=== PATIENT | male | born 1945 | race Caucasian/White ===

== ENCOUNTER 2016-11-29 14:00 | Inpatient (IN) | payer MEDICARE, OTHER ==
[~2016-11-29] VITALS: Ht 172.7 cm; Wt 53.3 kg
--- NOTE | ~2016-11-29 | HP ---
PATIENT'S NAME: SAMPSON LEGER [facility] AGE: 71 Y [address] ROOM: [place] [address] [place] [facility] [place]: 11/29/2016 History & Physical DISCHARGE DATE: FAMILY PHYSICIAN: PHYSICIAN, UNKNOWN ATTENDING PHYSICIAN: REN CHAHAL DATE OF SERVICE: 11/29/2016 PRIMARY CARE PROVIDER: April Gil M.D. and/or [facility]. CHIEF COMPLAINT: Hematochezia and hematuria. HISTORY OF PRESENT ILLNESS: The patient is a pleasant 71-year-old male, who presents with 2-day history of bright red blood per rectum. He has been having some painful bowel movements and they presented to the [facility] today for further evaluation. Blood in his stool was confirmed as well as large amount of hematuria. The patient was transferred to this facility for higher level of treatment. The patient denies any changes in medications or activity level. He did have history of hematuria with previous UTI which has been several years ago. The patient does have some abdominal cramping especially when the bowels move. He does have some fecal incontinence. Denies any urinary incontinence. The patient denies any lightheadedness, dizziness, chest pain, or increased shortness of breath. He does have history of COPD and emphysema and is oxygen dependent at 2 L. The patient denies any history of colonoscopy or EGD. He states that he did have a CAT scan several years ago, they were uncertain as to why he had had all the findings of such. The patient denies any acute gastrointestinal or respiratory illnesses. He has not had any fevers, chills, or sweats. He does have some weight loss. is unable to ascertain how much . The patient does have strong tobacco use, recently quit 2-1/2 years ago, and smoked cigarettes prior to that. He does admit to drinking 3 beers daily. He states that he does not imbibe that he had not noticed any withdrawal symptoms, shaking, tremors, or seizures. PAST MEDICAL HISTORY: Illnesses include: 1. BPH. 2. History of tachycardia. 3. Essential hypertension. 4. Hyponatremia. 5. Chronic depression. PATIENT'S NAME: SAMPSON LEGER [facility] AGE: 71 Y [address] ROOM: [address] [address] [place] [facility] [place]: 11/29/2016 History & Physical DISCHARGE DATE: FAMILY PHYSICIAN: PHYSICIAN, UNKNOWN ATTENDING PHYSICIAN: REN CHAHAL 6. COPD, oxygen dependent. 7. Seborrheic dermatitis. ALLERGIES: PENICILLIN. CURRENT MEDICATIONS: 1. Advair 250/50, one puff twice daily. 2. Flomax 0.4 mg p.o. daily. 3. DuoNeb p.r.n. 4. Ketoconazole cream topically twice daily. 5. Guaifenesin 600 mg q.12 hours. 6. Multivitamin 1 tablet daily. 7. MiraLax 17 grams every other day. 8. Prozac 20 mg daily. 9. Spiriva 1 vial inhaled daily. 10. Metoprolol 25 mg daily. 11. Triamcinolone cream topically twice daily. 12. Ascorbic acid 500 mg daily. SOCIAL HISTORY: The patient is . He is retired. His functional capacity is quite limited. He does walk with a 4-pronged cane around the house, does not travel outside the house. His alcohol and tobacco use are as noted above. FAMILY HISTORY: Significant for cardiac disease in his father and alcoholism. The patient does have 2 adult children, unknown if any health issues. REVIEW OF SYSTEMS: A 13-point review of systems was obtained. Pertinent positives noted above. PHYSICAL EXAMINATION: VITAL SIGNS: The patient's weight is 53.3 kilos, he is 5 feet and 8 inches, blood pressure is 115/71, pulse 83, respirations 22, and he is 96% on 2 L. GENERAL: The patient is alert, oriented, in no acute distress. HEENT: Head: Normocephalic and atraumatic. Eyes: PERRLA and EOMI. Nose, throat posterior pharynx is nonerythematous. No tonsillar hypertrophy or exudate. NECK: Supple. No adenopathy or thyromegaly. LUNGS: Coarse with inspiratory and expiratory wheezes throughout. Bases are diminished. HEART: Very distant, but auscultated to be regular rate and rhythm without murmur. ABDOMEN: Slightly distended. Positive bowel sounds auscultated. No masses or organomegaly palpated. PATIENT'S NAME: SAMPSON LEGER [facility] AGE: 71 Y [address] ROOM: [id number] [place], [place] [address] [place] [facility] [place]: 11/29/2016 History & Physical DISCHARGE DATE: FAMILY PHYSICIAN: PHYSICIAN, UNKNOWN ATTENDING PHYSICIAN: REN CHAHAL GENITOURINARY: Within normal limits. I do note vera blood present at the tip of the penis. RECTAL: Deferred at this time, but I do note the exterior to be covered with bright red blood as well. SKIN: He has a large, looks like a lentigo lesion in the middle of his back. He does have scattered ecchymoses throughout the skin. He does have a rash consistent with seborrheic dermatitis across the and facial margins. NEUROLOGIC: No focal or sensory deficits noted. Moves all extremities against gravity. PSYCHIATRIC: The patient is alert, oriented, and in no acute distress. Does not appear to have diminished affect. MUSCULOSKELETAL: Appropriate range of motion is noted in bilateral upper and lower extremities without significant crepitus or joint effusion. LABORATORY DATA: Laboratory studies from referring hospital. Urine drug screen was negative. Alcohol level was negative. Occult stool was positive. Urinalysis showed red urine with 2+ bilirubin, trace of glucose, 2+ ketones, specific gravity 1.01, blood was 3+, pH was 8.5, protein was 3+, nitrite positive, 3+ leukocyte esterase, packed red blood cells noted on micro. Sodium 137, potassium 4.2, chloride 98, bicarb 32, glucose 138, BUN 13, creatinine 0.73, serum osmolality 278, albumin 3.4, total bilirubin 0.5, alkaline phosphatase 83, AST 21, and ALT 26. White blood cell count 9.6, hemoglobin 14.0, hematocrit 42.1, and platelets 260. IMPRESSION AND PLAN: 1. Acute lower gastrointestinal bleed. We will check stat labs, and start a PPI and IV fluids. We will type and cross and hold for right now, and GI has been consulted. We will monitor H and H q.6 hours. The patient is agreeable to blood transfusion if necessary. Risks and benefits have been discussed. 2. Hematuria. We will check a urinalysis and culture and follow the CAT scan to further evaluate both the hematochezia and hematuria. 3. Chronic obstructive pulmonary disease. We will continue nebs and respiratory for severity scoring. We will get a chest x-ray and make adjustments, pending those results. 4. Hypotension. Will hold his metoprolol at this time with his mild hypotension. We will monitor him on telemetry. 5. Chronic daily alcohol use. Monitor for any withdrawal symptoms. 6. Deep venous thrombosis prophylaxis with SCDs only. 7. Code status. DNR/DNI. We do appreciate participating in this patient's care. Thank you very much for the ability to serve him while hospitalized at [facility]. PATIENT'S NAME: SAMPSON LEGER [facility] AGE: 71 Y [address] ROOM: [place] [address] [place] [facility] [place]: 11/29/2016 History & Physical DISCHARGE DATE: FAMILY PHYSICIAN: PHYSICIAN, UNKNOWN ATTENDING PHYSICIAN: REN CHAHAL TIMOTHY BOSTON FOR REN CHAHAL MD RACHELL/modl /[id number] D: [id number] T: [id number] HISTORY & PHYSICAL
--- NOTE | ~2016-11-29 | CON ---
PATIENT'S NAME: ESTUARDO LEGER [facility] AGE: 71 Y [address] ROOM: [place] [address] [place] [facility] [place]: 11/29/2016 Consultation DISCHARGE DATE: 12/08/2016 FAMILY PHYSICIAN: Physician, Unknown ATTENDING PHYSICIAN: Eugene Mcclellan REFERRING PHYSICIAN: Noah Pires MD CHIEF COMPLAINT: Estuardo Leger is a 71-year-old man with squamous cell carcinoma of the lung. The history of present illness was obtained from Mr. Leger, who is a fair historian; his nurse practitioner, Jhon Bliss; and from review of the current [facility] chart. HISTORY OF PRESENT ILLNESS: Mr. Leger was in his normal state of health until late November 2016. He lived in [place], [place] with Mrs. Leger. He is retired. He had no formal or informal exercise program. He used a cane for balance because he had experienced pratfalls in the past. He did not participate in a Physical Therapy or Occupational Therapy Program. 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 He did very little of the household tasks or yard work. He led a very sedentary existence. He had worn continuous oxygen for 5 to 10 years due to chronic obstructive lung disease. He sometimes had a productive cough. The patient developed gross hematuria and hematochezia at roughly the same time on 11/27/2016. The patient presented to the [facility] for evaluation, and hematuria and hematochezia were confirmed. Dr. April Gil arranged for his transfer to the [facility] (the [facility] did not have a bed). The patient was admitted and evaluated at [facility]. The urinalysis did reveal packed red blood cells, 20 to 50 wbc's, and urine protein of 100 mg/dL. The urine culture was negative. The CBC revealed that the white count was 9400, with 70% neutrophils, 8% lymphocytes, and 11% monocytes. The hemoglobin was 13 g/dL, the MCV was 101, and the platelets were 252,000. The CMS was just remarkable for an albumin of 3.2 g/dL. The TSH was normal at 0.734 international units/mL. The proBNP was elevated at 1432 pg/mL. The CK was elevated at 16.6 mg/mL and the troponin was elevated at 0.065 mg/mL. The cholesterol was 106, the triglycerides were 72 mg/dL, and the HDL cholesterol was 58 mg/dL. The sputum culture was unremarkable. Stools for Hemoccult testing were positive. Mr. Leger was seen in Urologic consultation by Dr. Noah Pires. Dr. Pires performed a cystoscopy, bladder biopsy, and fulguration on 12/01/2016. The patient had an elevated bladder neck, but no lateral lobe PATIENT'S NAME: ESTUARDO LEGER [facility] AGE: 71 Y [address] ROOM: [address] [address] [place] [facility] [place]: 11/29/2016 Consultation DISCHARGE DATE: 12/08/2016 FAMILY PHYSICIAN: Physician, Unknown ATTENDING PHYSICIAN: Eugene Mcclellan A prostatic enlargement. The patient had significant global inflammation of the prostate. No specific masses or lesions were noted. Two random biopsies were taken from the areas of inflammation, which were then fulgurated for hemostasis. The pathologists noted the presence of transitional epithelium, with mucosal ulceration and moderate to marked acute on chronic inflammation. There were no granulomas and no tumor was observed. The patient was seen by Dr. Aimee Terrazas, who recommended a colonoscopy. Dr. Terrazas also recommended a CAT scan. The colonoscopy revealed internal hemorrhoids. Polyps were noticed in the transverse colon, splenic flexure, and rectum. The colonic polyps were adenomas, and the rectal biopsy was a hyperplastic polyp. The polyps were excised. A CAT scan upon admission revealed a questionable 1.1-cm nodule overlying the anterior right eleventh rib. A CAT scan was recommended. A CAT scan of the abdomen and pelvis had revealed non-specific bladder wall thickening with mild left hydronephrosis. There was emphysema and moderate aortoiliac atherosclerosis. On 12/03/2016, the CT scan of the thorax revealed emphysematous changes in the lung parenchyma with bilateral apical pleural thickening and pleural parenchymal scarring. There were parenchymal calcifications in the upper lobe of the left lung and upper lobe of the right lung. There was a 3-cm cavitary lesion in the superior segment of the lower lobe of the left lung. The lesion extended to the posterior pleura. The margin was spiculated and irregular. There was scarring at the lung bases. There was an area of dense lung consolidation with adjacent patchy parenchymal opacity at the posterior aspect of the lower lobe of the right lung consistent with dense infiltrate and atelectasis. There were vascular calcifications at the thoracic aorta, arch vessels, and coronary arteries. A CT-guided biopsy of the mass in the lower lobe of the left lung was performed, and revealed squamous cell carcinoma in the core needle biopsy specimen. A grade was not provided. Mr. Leger is seen in consultation. The patient estimates he smoked two packs per day of cigarettes for 60 years, and has abstained for three years. The patient smoked Camel non- filters for many years. He supplies no convincing exposure history to asbestos, diesel fuel, uranium, chromium, or nickel. His home has never been checked for radon. PAST MEDICAL HISTORY: Active medical problems, chronic and diagnosed: 1. Benign prostatic hypertrophy. 2. Essential arterial hypertension. 3. Depression. 4. Tobacco use. The patient smoked two packs per day for 60 years, but has PATIENT'S NAME: ESTUARDO LEGER [facility] AGE: 71 Y [address] ROOM: [address] [place] [address] [place]: [facility] [place] DATE: 11/29/2016 Consultation DISCHARGE DATE: 12/08/2016 FAMILY PHYSICIAN: Physician, Unknown ATTENDING PHYSICIAN: Eugene Mcclellan abstained since 2013. 5. Seborrheic dermatitis. 6. Atherosclerotic peripheral vascular disease with aortoiliac calcifications. 7. The patient's left ankle brachial index was 0.89 compatible with moderate peripheral vascular disease. 8. Complex 2-cm left kidney cyst. 9. Bone island in the right iliac bone. 10. Atrophic right kidney. 11. Atherosclerotic heart disease with coronary calcifications. 12. Adenomatous polyposis of the colon in the transverse and splenic flexures noted in December 2016. 13. Pulmonary artery hypertension with dilated right ventricle on echocardiogram. 14. Subjective decreased auditory acuity. PAST SURGICAL HISTORY: Acute medical illnesses (resolved), past surgeries, and illnesses are 1. In 1952, tonsillectomy and adenoidectomy. 2. In 2001, left wrist. 3. Appendectomy. The patient cannot recall when this was performed and won't guess. MEDICATIONS: Upon admission, 1. Continuous oxygen. 2. Ascorbic acid 500 mg p.o. q.24 h. 3. Fluoxetine 20 mg p.o. q.24 h. 4. Fluticasone/salmeterol (Advair 250/50 Diskus) one puff inhaled b.i.d. 5. Guaifenesin 600 mg p.o. every twelve hours. 6. Ipratropium/albuterol 0.5/3 one vial every 6 hours. 7. Ketoconazole cream, apply to the face and scalp twice a day. 8. Metoprolol 50 mg p.o. q.24 h. 9. Multivitamins daily. 10. Polyethylene glycol 17 g every 48 hours. 11. Prednisone 5 mg daily. ALLERGIES: ADVERSE REACTIONS TO MEDICATIONS, TRANSFUSIONS, AND ALLERGIES 1. PENICILLIN LEAD TO URTICARIA. 2. THE PATIENT DENIES ANY BLOOD TRANSFUSIONS. 3. TOBACCO, QUIT SINCE 2013, TWO PACK PER DAY FOR SIXTY YEARS CAMEL NON-FILTERS. 4. ALCOHOL THREE TO FOUR BEERS A DAY, AND THREE SHOTS A DAY FOR DECADES. THE PATIENT HAS BEEN ARRESTED MANY TIMES FOR DUI, BUT DENIES HOSPITALIZATIONS OR MEDICAL COMPLICATIONS. 5. CAFFEINE, 6 TO 7 CUPS OF COFFEE PER DAY. PATIENT'S NAME: ESTUARDO LEGER [facility] AGE: 71 Y [address] ROOM: [place] [address] [place] [facility] [place]: 11/29/2016 Consultation DISCHARGE DATE: 12/08/2016 FAMILY PHYSICIAN: Physician, Unknown ATTENDING PHYSICIAN: Eugene Mcclellan 6. DRUGS OF ABUSE. THE PATIENT HAS ABSTAINED FROM METHAMPHETAMINE SINCE ROUGHLY 2006, BUT HAD INGESTED IT FOR 25 YEARS PRIOR TO THAT TIME. HE IS ALSO SAMPLED LSD WHEN HE WAS YOUNGER AND SMOKED MARIJUANA. IMMUNIZATIONS: Negative flu. The patient does not know if he has had Pneumovax. Positive tetanus in the last 10 years. Negative varicella zoster virus. FAMILY HISTORY: Negative for cancer. SOCIAL HISTORY: The patient was born and raised in [place], [place]. He left school after the 9th grade and did not get a GED. He has lived in [place] with his for 13 years. 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 The patient has been to two other spouses, and was on two occasions. He had one son who at 19. He has a daughter in [place] and [place], [place], and a stepdaughter in [place] and stepsons in [place]. He is not a gnosticism goer. REVIEW OF SYMPTOMS: Intermittent tingling in his hands. The patient has had memory problems. He has developed contractures of his right third and fifth fingers and left fifth and second fingers. He has subjective heat intolerance. PHYSICAL EXAMINATION: VITAL SIGNS: Pulse was 76 and regular, blood pressure was 135/75, respiratory rate was 16, and temperature was 97.8. Height is 68 inches, weight is 53.5 kg (118 pounds), and BMI is 17.9 kg/m2. GENERAL: Well-developed, underweight, disheveled, and unkempt 71-year-old male, who appears frail. HEENT: Edentulous. LYMPH NODES: None palpable. NECK: Without JVD or carotid bruits. NOSE: Acne rosacea. CHEST: Markedly decreased breath sounds bilaterally. CARDIOVASCULAR: Decreased S1 and S2. No murmurs, bruits, or adventitious sounds were audible. SKIN: Garza angiomas and ecchymoses on the ventral forearms. ABDOMEN: Healed appendectomy scar. No masses, tenderness, or organomegaly. GENITAL AND RECTAL: The patient is circumcised. The Horne catheter was in place. EXTREMITIES: Digital clubbing and tobacco stain on the fingernails. Compression devices are present on his legs. Pulses are 2+ in the dorsalis PATIENT'S NAME: ESTUARDO LEGER [facility] AGE: 71 Y [address] ROOM: [address] [address] [place] [facility] [place] DATE: 11/29/2016 Consultation DISCHARGE DATE: 12/08/2016 FAMILY PHYSICIAN: Physician, Unknown ATTENDING PHYSICIAN: Eugene Mcclellan pedis and the posterior tibial. The patient's toenails have not been clipped for a great deal of time. NEUROLOGICAL: The patient responds to questions, and is alert and moves all four extremities. IMPRESSION: 1. 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 The tumor is 3 cm and extends to the visceral pleura on CAT scan. No lymphadenopathy or signs of distant metastases are noted. 2. Risk factors include his tobacco use and age of 71. 3. The treatment goals, prognosis, and treatment recommendations depend on the final clinical stage. It appears the patient may achieve a cure. 4. The patient is almost certainly not a physiologic candidate for surgical resection. He may well be a candidate for external beam radiation or stereotactic radiation surgery with curative intent. PLAN: DIAGNOSTIC: 1.The patient will see Dr. Kmeal Hurd at the [facility], at [facility] in [place], [place] at 09:30 a.m. on 12/13/2016. 2.Pulmonary function tests and a PET-CT scan would be reasonable and standard. 3.Bronchoscopy is generally recommended in this situation by the [employer] [facility] experts but could be forgone. TREATMENT: 1. Recommendations would depend on the final clinicopathologic stage. 2. Continue medications recommended by the hospitalists. PATIENT EDUCATION: 1.Provided a customized hand-out on his situation and the [employer] care material online for aqx-ibehk-ftag carcinoma, stage I-III. 2.Discussed the natural history of the cancer without treatment. 3.Discussed the risk factors. 4.Discussed the rationale for the staging workup. 5.Expressed our hope he could be treated with curative intent since the tumor appears to be low stage and is a squamous cell carcinoma. 6.Arranged for him to visit our colleagues in [place], [place], since he is from [place], [place], and usually seeks specialty care in [place]. PATIENT'S NAME: ESTUARDO LEGER [facility] AGE: 71 Y [address] ROOM: [address] [address] [place] [facility] [place] DATE: 11/29/2016 Consultation DISCHARGE DATE: 12/08/2016 FAMILY PHYSICIAN: Physician, Unknown ATTENDING PHYSICIAN: Eugene Mcclellan MD FER OLIVARES/jono /[id number] CC: MD April Alexander, MD Jhon Orlando APRN d: 12/09/16 0120 t: 12/12/16 1447, CONSULTATION REPORT
--- NOTE | ~2016-11-29 | CON ---
PATIENT'S NAME: SAMPSON LEGER [facility] AGE: 71 Y [address] ROOM: [place] [address] [place] [facility] [place] DATE: 11/29/2016 Consultation DISCHARGE DATE: FAMILY PHYSICIAN: PHYSICIAN, UNKNOWN ATTENDING PHYSICIAN: REN CHAHAL DATE OF CONSULTATION: 11/30/2016 REFERRING PHYSICIAN: Noah Pires MD HISTORY: The patient is a 71-year-old male, initially admitted secondary to dysuria and pain with defecation. The patient reported difficulty with urination complaining of dysuria and also reports what sounds like hematuria for the past 4 or 5 days. He also reports blood with bowel movements. The patient has had abdominal and pelvic CT scan, which showed bladder wall thickening, possible blood within the bladder, and mild left hydronephrosis. Nursing staff reported gross hematuria with clots when Horne catheter was placed. Again, the patient reports gross hematuria for the past 4-5 days. The patient has also had a colonoscopy which was essentially negative other than polyps. The patient was a long-time smoker, but stopped approximately 2-1/2 years ago. I discussed cystoscopy with possible bladder biopsy or TURBT with the patient along with risks and benefits. PAST MEDICAL HISTORY: Significant for BPH, hypertension, chronic depression, COPD, dermatitis, emphysema, and chest pain. PAST OPERATIONS: Tonsillectomy and appendectomy. MEDICATIONS: At admission are, 1. Flomax. 2. Advair Diskus. 3. DuoNeb nebulizer. 4. Ketoconazole cream. 5. Prozac. 6. Spiriva. 7. Toprol. 8. Vitamin C. ALLERGIES: PENICILLIN. SOCIAL HISTORY: PATIENT'S NAME: SAMPSON LEGER [facility] AGE: 71 Y [address] ROOM: [address] [address] [place] [facility] [place] DATE: 11/29/2016 Consultation DISCHARGE DATE: FAMILY PHYSICIAN: PHYSICIAN, UNKNOWN ATTENDING PHYSICIAN: REN CHAHAL The patient is a nonsmoker, stopping 2-1/2 years ago, prior to that he smoked 2 packs of cigarettes a day for 50 years. The patient does consume alcohol daily. REVIEW OF SYSTEMS: Significant for chronic cough. PHYSICAL EXAMINATION: GENERAL: Elderly male, appears somewhat disheveled, long facial hair and hair. EARS, NOSE, MOUTH, AND THROAT: The patient has some difficulty hearing. LUNGS: There are some wheezes noted bilaterally. CARDIAC: Regular rhythm and rate. ABDOMEN: Benign. NEURO: Grossly intact. SKIN: Within normal limits. MUSCULOSKELETAL: Full range of motion. Normal muscle tone. IMPRESSION: Gross hematuria. PLAN: We will schedule the patient for cystoscopy with possible bladder biopsy or TURBT for tomorrow afternoon. MD ATUL TATE/jono /[id number] d: 11/30/162111 t: 12/11/161915, CONSULTATION REPORT
--- NOTE | ~2016-11-29 | CON ---
PATIENT'S NAME: [facility] AGE: 71 Y [address] ROOM: [address] [address] LOCATION: [facility] [place] ADMIT DATE: 11/29/2016 Consultation DISCHARGE DATE: FAMILY PHYSICIAN: PHYSICIAN, UNKNOWN ATTENDING PHYSICIAN: REN MCCLELLAN DATE OF CONSULTATION: 11/29/2016 REFERRING PHYSICIAN: Noah Pires MD REFERRING PHYSICIANS: Dr. Mcclellan and TIMOTHY Dupont. CONSULTING PHYSICIAN: Aimee Terrazas M.D. REASON FOR CONSULTATION: Lower GI bleeding. HISTORY OF PRESENT ILLNESS: The patient is a pleasant, 71-year-old white male, who has been referred from [facility] for possible evaluation of lower GI bleeding. According to the patient, he has been having some rectal bleeding for the last 3 days. He is also complaining of severe dysuria. He has also had urgency of micturition. He was referred here for further management. He denies any abdominal pain. He has never had any colonoscopy done. He has never had any upper endoscopy done also. He does have a history of alcoholism. PAST MEDICAL HISTORY: Significant for benign prostatic hypertrophy and essential hypertension. He has had hyponatremia in the past. Depressive disorder and chronic obstructive pulmonary disease. He has pulmonary emphysema and seborrheic dermatitis. He also smokes, he stated that he quit 2 years ago. CURRENT MEDICATIONS: Include, 1. Advair Diskus. 2. Flomax. 3. Ipratropium. 4. Albuterol. 5. Mucinex. 6. Multivitamin. 7. MiraLAX p.r.n. for constipation. 8. Prozac. 9. Spiriva HandiHaler. 10. Toprol-XL. PATIENT'S NAME: [facility] AGE: 71 Y [address] ROOM: [address] [address] LOCATION: [facility] [place] ADMIT DATE: 11/29/2016 Consultation DISCHARGE DATE: FAMILY PHYSICIAN: PHYSICIAN, UNKNOWN ATTENDING PHYSICIAN: REN MCCLELLAN 11. Triamcinolone ointment. 12. Vitamin C. ALLERGIES: TO PENICILLIN. PAST SURGICAL HISTORY: Significant for tonsillectomy and adenoidectomy as a child and appendectomy done. FAMILY HISTORY: He has 2 brothers. Father had coronary artery disease. He does not remember any other illnesses in the family. SOCIAL HISTORY: Lives with his . Retired. He stated he has not smoked in 2 years. He is oxygen dependent with COPD. Does drink alcohol in moderate amounts on a daily basis. No fzym-yup-hirlsok drug or alcohol abuse. REVIEW OF SYSTEMS: A detailed 10-point review of systems was done. It was found to be negative other than what is mentioned in the history of present illness and past medical history. LABORATORY DATA: When he arrived in the emergency room labs showed sodium 137, potassium 4.2, chloride is 98, bicarb is 32, BUN is 13, creatinine 0.73, glucose 138, AST of 21, ALT 26, alkaline phosphatase 83. His WBC is 9.6, hemoglobin 14.0, hematocrit 42.1, and platelet count is 260. Urine showed packed rbc's, 3+ leukocyte esterase, positive for nitrites. PHYSICAL EXAMINATION: GENERAL: Today, he is alert and awake. He does not appear to be in any acute distress. He is fairly well oriented and does not appear to be confused. VITAL SIGNS: Show blood pressure is 115/71, heart rate is 80, respiratory rate is 22, and O2 saturation is 96%. GENERAL: Reveals no pallor, no icterus. Oral cavity is normal. Nasal passages are clear. NECK: No masses are felt. No thyromegaly is felt. He has a large morales. CHEST: Emphysematous chest. No obvious wheezing or rhonchi. ABDOMEN: Soft, nontender. I do not feel any masses. RECTAL: Examination was done, which is slightly painful. I do see large amounts of fresh blood in it. No definite hemorrhoids are felt. No masses are felt. MUSCULOSKELETAL: No obvious injuries or deformities are seen. PATIENT'S NAME: SAMPSON LEGER [facility] AGE: 71 Y [address] ROOM: [place] [address] LOCATION: [facility] [place] ADMIT DATE: 11/29/2016 Consultation DISCHARGE DATE: FAMILY PHYSICIAN: PHYSICIAN, UNKNOWN ATTENDING PHYSICIAN: REN MCCLELLAN NEUROLOGICAL: Grossly nonfocal. LABORATORY DATA: As mentioned above. IMPRESSION: The patient with a history of possible lower gastrointestinal bleeding. The etiology is not clear. He has never had a screening colonoscopy done. In view of this, we will be scheduling him for a colonoscopy. The procedure of colonoscopy was explained in detail to the patient. All risks, including but not limited to, bleeding, perforation, possible need for surgery were explained. Informed consent was then obtained. In addition to this, the patient also has possibly urinary tract infection. This has been managed as per the hospitalist. The patient is to also get a CT scan of the abdomen done. I think this is appropriate. We will consider further management if findings require us doing so. Thank you once again for the courtesy of this consultation. We will be happy to follow the patient along with you. MD MASOOD HERNANDEZ/modl /[id number] d: 11/30/16 0052 t: 11/30/16 1655, CONSULTATION REPORT
--- NOTE | ~2016-11-29 | DS ---
PATIENT'S NAME: SAMPSON LEGER [facility] AGE: 71 Y [address] ROOM: [address] [address] [place] [facility] [place]: 11/29/2016 Discharge Summary DISCHARGE DATE: 12/08/2016 FAMILY PHYSICIAN: Physician, Unknown ATTENDING PHYSICIAN: Eugene Mcclellan ADDENDUM: Regarding the discharge instruction, Dr. Centeno made a phone call to the oncologist at [facility] for them to schedule the patient for an outpatient PT at [facility] and he did also talk with an oncologist there by the name of Dr. Kemal Hurd who will continue onwards with the care of the patient. MD RALEIGH GUTIERREZ/nicolel /[id number] d: 12/09/16 0027 t: 12/18/16 1013, DISCHARGE SUMMARY
--- NOTE | ~2016-11-29 | CON ---
PATIENT'S NAME: SAMPSON LEGER [facility] AGE: 71 Y [address] ROOM: [id number] [place], [place] [address] [place] [facility] [place]: 11/29/2016 Consultation DISCHARGE DATE: 12/08/2016 FAMILY PHYSICIAN: Physician, Unknown ATTENDING PHYSICIAN: Eugene Mcclellan DATE OF CONSULTATION: 12/04/2016 REFERRING PHYSICIAN: Noah Pires MD REASON FOR CONSULTATION: Indication: Cavitary lesion on chest CT, was abnormal chest CT. HISTORY OF PRESENT ILLNESS: This is a 71-year-old male with history of COPD, O2 dependent; and other comorbidities, sent from [email or web address] for possible lower GI bleed. Colonoscopy was performed without identifying any specific source. Multiple polyps were removed and internal hemorrhoids were noted. A cystoscopy was performed on December 01 with no acute bleeding source identified. Hemoglobins have remained stable since admission. A chest x-ray performed on November 29 identified a nodule over the anterior third rib. A followup chest CT was performed on December 03 showing a cavitary lesion in the left lower lobe with dense consolidation of the right lower lobe, emphysema, and pleural thickening/scarring. The patient reports he was initially diagnosed several years ago with COPD and has been on 2 L continuous oxygen for a few years now. He reports a history of one hospitalization for respiratory failure. Otherwise, he has had no further exacerbations that he can recall. His home regimen for his COPD typically includes Advair twice a day and DuoNeb once a day. He was a former tobacco smoker at least one pack per day for over 40 years and quit two years ago. He currently still uses alcohol. He is not an overly active person. His main walking consists of only room to room in his house. He is always short of breath, however, this has not worsened over the last few months. He typically has an intermittent cough that is occasionally productive in the mornings. He feels the cough might be a little worse since admission, but has been unable to cough anything up. He denies any fevers, chills, nausea, vomiting, or hemoptysis. He has had no recent travel or illness. He denies any PND, orthopnea, or edema. PAST MEDICAL HISTORY: Include: 1. BPH. 2. Hypertension. 3. Depression. 4. Former tobacco use. 5. Seborrheic dermatitis. 6. Peripheral vascular disease. PATIENT'S NAME: SAMPSON LEGER [facility] AGE: 71 Y [address] ROOM: [place] [id number] [place] [facility] [place]: 11/29/2016 Consultation DISCHARGE DATE: 12/08/2016 FAMILY PHYSICIAN: Physician, Unknown ATTENDING PHYSICIAN: Eugene Mcclellan 7. CAD. 8. Cor pulmonale with pulmonary hypertension. PAST SURGICAL HISTORY: Includes: 1. Tonsillectomy. 2. Left wrist surgery. 3. Appendectomy. ALLERGIES: SEE NOV. MEDICATIONS: See NOV. FAMILY HISTORY: Negative for lung disease. SOCIAL HISTORY: The patient is a former one pack per day smoker for over 40 years and quit two years ago. He admits to current alcohol use. Denies any illicit drug use. REVIEW OF SYSTEMS: A 10-point review of systems is negative except what is noted in the HPI. PHYSICAL EXAMINATION: VITAL SIGNS: Blood pressure 129/67, pulse 102, respirations 22, temperature 97.9, and he is 94% on 2 L nasal cannula. GENERAL: This is a 71-year-old, well-developed, well-nourished male, who is alert and oriented x3 and appears in no acute distress at the time of exam. HEENT: Head; normocephalic and atraumatic. Eyes, clear. NECK: Supple. No adenopathy. No carotid bruits or JVD. RESPIRATORY: Lung sounds distant with decreased breath sounds, but overall clear. HEART: Regular rate and rhythm without murmur, gallop, or rub. No wheezes or rales. ABDOMEN: Soft, nontender, and nondistended. Bowel sounds x4. EXTREMITIES: No cyanosis, clubbing, or edema. DIAGNOSTIC DATA: ProBNP was 1432. Sodium 140, potassium 3.5, CO2 of 32, BUN 10, and creatinine 0.6. WBC 9.7, hemoglobin 11.3, hematocrit 35.8, and platelets 246,000. ASSESSMENT: 1. Abnormal chest CT with left lung cavitary lesion which is concerning for PATIENT'S NAME: SAMPSON LEGER [facility] AGE: 71 Y [address] ROOM: [address] [place] [id number] [place] [facility] [place]: 11/29/2016 Consultation DISCHARGE DATE: 12/08/2016 FAMILY PHYSICIAN: Physician, Unknown ATTENDING PHYSICIAN: Eugene Mcclellan malignancy. There is also right lung consolidation which would indicate possible pneumonia. 2. Chronic obstructive pulmonary disease with exacerbation. 3. Community-acquired pneumonia, on antibiotics. 4. Chronic respiratory failure, stable on current oxygen needs. 5. Cor pulmonale. PLAN: We will plan for a CT-guided biopsy of the left cavitary lung lesion. We will start levofloxacin orally for 7 days to cover. Recommend continuing with prednisone taper, inhaled cortical steroid, and bronchodilator for COPD exacerbation. Discussed the need for repeat CT of the chest in 6 weeks. However, the patient is refusing this at this time. Thank you for the consult and opportunity to participate in this patient's care. ANDRIA DOLAN APRN FOR MD GRETCHEN BROCK/jono /[id number] d: 12/27/16 1335 t: 01/02/17 2137, CONSULTATION REPORT
--- NOTE | ~2016-11-29 | ECHO ---
Transthoracic Echocardiography Report (TTE) Demographics Patient Name SAMPSON LEGER Date of Study 12/03/2016 Patient Number [id number] Visit Number [id number] Date of 1945 Room Number G3202 Gender Male Number Age 71 year(s) Referring Michelle Faulkner Active Directory Systems Administrator Corrieamita Gore [facility], Physician Willie BURNETTE RVT Vy Montiel MD Physician Interpreting [facility] Physician Lucie Tapia MD Supervising Ordering Replaced By [facility] BURNETTE/MLP Physician Lucie Tapia MD Nurse Stress Bagging Machine Operator Conclusions Contractility Score Summary Normal Left Ventricular contractility was noted. Summary Technically very difficult exam. The estimated left ventricular ejection fraction is 50%. Diastolic function indeterminate due to patient's arrhythmia. Poor pericardial and apical windows. Flattened septum in end systole suggests RV pressure overload. Severely dilated right ventricle. Reduced right ventricular systolic performance. R atrium not well visualised. appears dilated Procedure Type of Study TTE procedure:2D Echocardiogram. Procedure Date Date: 12/03/2016 Start: 02:34 PM Study Location: Inpatient Portable Technical Quality: Poor visualization due to lung interference. Indications:Tachycardia. Appropriate Use Criteria: 9 Patient Status: Routine Rhythm: Sinus tachycardia HR: 139 bpm M-Mode/2D Measurements LV Diastolic Dimension: 3.75 cm LV Septum Systolic: 2.6 cm LV Septum Diastolic: 0.92 cm AO Root Dimension: 2.5 cm LV PW Diastolic: 0.96 cm AV Cusp Separation: 1.6 cm LA Dimension: 3.2 cm RV Diastolic Dimension: 3.47 cm LVOT: 2 cm RV Base: 3.19 cm RV Mid: 3.42 cm RV Length: 4.7 cm Doppler Measurements PV Peak Velocity: 1.25 m/s PV Peak Gradient: 6.25 mmHg Findings Left Ventricle The estimated left ventricular ejection fraction is 50%. Diastolic function indeterminate due to patient's arrhythmia. Flattened septum in end systole suggests RV pressure overload. Right Ventricle Severely dilated right ventricle. Reduced right ventricular systolic performance. Left Atrium not well visualised. Right Atrium not well visualised. appears dilated Mitral Valve The mitral valve is not well imaged. Aortic Valve The aortic valve was not well imaged. It appears to be tri-leaflet and grossly normal. Tricuspid Valve The tricuspid valve is not well visualized. Pulmonic Valve The pulmonic valve is not well visualized. Pericardial Effusion No evidence of pericardial effusion. Miscellaneous Poor pericardial and apical windows. Pleural Effusion No evidence of pleural effusion. Contractility Score LV regional wall motion:(0-Non visualized 1-Normal 2-Hypokinesis 3-Akinesis 4-Dyskinesis 5-Aneurysm) Signature dtt: Damián Martinez dtd: 12/03/16 5135 Physician Self Edit
--- NOTE | ~2016-11-29 | CON ---
PATIENT'S NAME: SAMPSON LEGER [facility] AGE: 71 Y [address] ROOM: [place] [address] LOCATION: [facility] [place] ADMIT DATE: 11/29/2016 Consultation DISCHARGE DATE: FAMILY PHYSICIAN: PHYSICIAN, UNKNOWN ATTENDING PHYSICIAN: REN CHAHAL REFERRING PHYSICIAN: Noah Pires MD REASON FOR CARDIOLOGY CONSULT: Tachycardia. HISTORY OF PRESENT ILLNESS: This is a 71-year-old male admitted under the care of the Hospitalist Service for hematochezia and hematuria. He presented initially to an outside hospital with complaints of bloody stool and during his workup in the hospital, he was also noted to have hematuria. This consult requested due to the patient having a tachycardia on his telemetry while working with Physical Therapy. He denies chest pain, palpitations, presyncope, or syncope. He also denies shortness of breath or dyspnea on exertion. He does have a previous history of hypertension and tachycardia. No other noted cardiac history. There is family history of heart disease in his father. At the time of this consult, he appears comfortable. He denies diaphoresis, nausea, or vomiting at this time. PAST MEDICAL HISTORY: 1. Hypertension. 2. BPH. 3. COPD with need for continuous oxygen. 4. Depression. PAST SURGICAL HISTORY: Appendectomy. FAMILY HISTORY: As listed in the HPI. SOCIAL HISTORY: The patient is a former cigarette smoker. He smoked 2 packs of cigarettes per day for a total of 40 years. He also admits to alcohol use seven days a week, and on those days, he will have four alcoholic drinks. He denies illicit drug use. CURRENT MEDICATIONS: 1. Albuterol sulfate 2.5 mg inhaled every 6 hours. 2. Dulera 200/5 mcg two puffs inhaled twice daily. 3. Spiriva 1 puff inhaled daily. 4. Deltasone 40 mg p.o. daily. PATIENT'S NAME: SAMPSON LEGER [facility] AGE: 71 Y [address] ROOM: [place] [address] LOCATION: [facility] [place] ADMIT DATE: 11/29/2016 Consultation DISCHARGE DATE: FAMILY PHYSICIAN: PHYSICIAN, UNKNOWN ATTENDING PHYSICIAN: REN CHAHAL 5. Flomax 0.4 mg p.o. daily. 6. Mucinex 600 mg p.o. twice daily. 7. Levaquin 750 mg p.o. daily. 8. Protonix 40 mg p.o. daily. 9. Prozac 20 mg p.o. daily. 10. Multivitamin 1 tablet p.o. daily. 11. Vitamin C 500 mg p.o. daily. 12. Nizoral cream topically twice daily to face. 13. Triacet cream topically twice daily. MEDICATION ALLERGIES: 1. Penicillin. 2. Bee venom causing anaphylaxis. REVIEW OF SYSTEMS: Pertinent positive review of systems as listed in the HPI. All other review of systems evaluated and negative. PHYSICAL EXAMINATION: VITAL SIGNS: Temperature 98.4, pulse 85, respirations 16, blood pressure 124/78. O2 saturation 93% on 2 L nasal cannula. The patient weighs 53.3 kg. SKIN: [place], warm, and dry. The patient appears cachectic. EYES: Sclerae clear. No cyanosis. No xanthelasmas. ENT: Oral mucosa is pink and moist. No jugular venous distention noted. Does have mild carotid bruits noted. CHEST: Lung sounds are clear to auscultation. HEART: Distant heart tones, but regular rate and rhythm. Normal S1, S2. No murmurs, rubs, or gallops. ABDOMEN: Soft and nontender. He has decreased bowel sounds noted. MUSCULOSKELETAL: Gait is normal. EXTREMITIES: Peripheral pulses palpable. His pedal pulses are diminished and he does have positive femoral bruits. No clubbing or cyanosis noted. PSYCH: Alert and oriented. Mood and affect are appropriate. IMPRESSION AND PLAN: Per Dr. Martinez. 1. Tachyarrhythmia with questionable atrial fibrillation. His current EKG appears to show sinus tachycardia. We will check another EKG as the last one has quite a bit of artifact and his rate is currently slower than previously. We will also check an echocardiogram to fully evaluate ejection fraction as well as look for wall motion and valvular abnormalities. We will check a set of cardiac enzymes as well as a proBNP, TSH, and a lipid panel. 2. Peripheral arterial disease. We will check a set of ABIs. 3. Chronic obstructive pulmonary disease with O2 dependence. PATIENT'S NAME: SAMPSON LEGER [facility] AGE: 71 Y [address] ROOM: [place] [id number] LOCATION: [facility] [place] ADMIT DATE: 11/29/2016 Consultation DISCHARGE DATE: FAMILY PHYSICIAN: PHYSICIAN, UNKNOWN ATTENDING PHYSICIAN: REN CHAHAL 4. Acute gastrointestinal bleed lower under the care of hospitalist and GI services. 5. Hematuria has been evaluated by Urology. 6. Acute blood loss anemia. Currently stable. We will continue to monitor, evaluate, and treat as appropriate. Thank you for this consult. Thank you for allowing [facility] to interact in the care of the patient. DIONNE VALENTIN APRN FOR AKIL-MD ROSSY OTOOLE/jono /[id number] d: 12/05/16 0144 t: 12/20/16 1037, CONSULTATION REPORT
--- NOTE | ~2016-11-29 | ENPV ---
Vascular Lower Arterial Plethysmography Procedure Demographics Patient Name SAMPSON LEGER Date of Study 12/04/2016 Patient Number [id number] Gender Male Date of 1945 Age 71 Visit Number [id number] Height 68 Weight 113 Number Referring Damirmamtachristine Victoriaarmandonancy Interpreting Rhinaou Laurootis Physician A Physician A MD Vy Montiel MD Physician Ordering Michelle Faulkner Branch Specialist Physician A Title Vehicle Service Attendant Isael Brandt [facility] Jakub Dove Conclusions Summary Ankle brachial index on the right is 1.08 no significant arterial disease at rest. Ankle brachial index on the left is 0.89 mild arterial disease at rest. Procedure Type of Study: Extremities Arteries:Lower Arterial Plethysmography, Ankle/Brachial Indicies. Indications for Study:Reduced/Absent pulses. Blood Pressure:Right arm 120/ mmHg.Left arm 123/ mmHg. Patient Status:Routine. Study Location:Inpatient Portable. Technical Quality:Adequate visualization. Velocities are measured in cm/s ; Diameters are measured in cm Pressures + +----+ +---------+--------+ + + ! ! !Right ! !Left ! ! ! + +----+ +---------+--------+ + + !Location ! !Pressure !Ratio ! !Pressure !Ratio ! + +----+ +---------+--------+ + + !Ankle PT ! !114 !0.93 ! !110 !0.89 ! + +----+ +---------+--------+ + + !DP ! !133 !1.08 ! !102 !0.83 ! + +----+ +---------+--------+ + + - Brachial Pressure:Right: 120.Left:123. - SAMINA:Right: 1.08.Left: 0.89. Signature dtt: Damián Martinez dtd: 12/04/16 1438 Physician Self Edit
--- NOTE | ~2016-11-29 | ESTC ---
Cardiac Perfusion Imaging Demographics Patient Name AFRICA BRADEN Gender Male Patient Number [id number] Race Visit Number [id number] Ethnicity Corporate ID Room Number G3202 Accession Number [id number] Height 68 inches Date of 1945 Weight 113 pounds Physician MANIFOLD OPERATOR Interpreting Scotty Barboza Date of study 12/07/2016 Physician Supervising /CIROP Michelle MARTINEZ Technologist Rajesh Tapia MD Ordering Physician Stress Kayden Rodriguez radiocommunications technician RDCS, RVT Stress ECG Reading Michelle Faulkner Nurse Tyler Cee RN Physician Willie BURNETTE Procedure Procedure Type: Nuclear Stress Test:Pharmacological, Lexiscan, Cardiolite Stress Test Procedure Start time: 12/07/2016 10:45 Indications: Tachycardia. Risk Factors The patient risk factors include:hypertension and chronic lung disease. Conclusions Summary Perfusion Images: The overall quality of the study is good. Left ventricular cavity is noted to be normal on the stress and rest studies. There is no evidence of abnormal lung activity. The right ventricle is not visualized and cannot be assessed. Stress SPECT images and Rest SPECT images demonstrate homogenous tracer distribution throughout the myocardium . Gated SPECT imaging reveals normal myocardial thickening and wall motion. The left ventricular ejection fraction was calculated to be 66%. Impression ECG portion of stress test is clinically negative for ischemia by diagnostic criteria. Myocardial perfusion imaging is normal. Overall left ventricular systolic function was normal without regional wall motion abnormalities. There are no previous studies for comparison. Stress Protocols Resting ECG Normal sinus rhythm. Pre-stress physical exam: Patient assessed by dR Ochoa prior to testing. Stress Protocol:Pharmacologic Predicted HR: 151 bpm ECG Findings No ECG changes suggestive of ischemia. Arrhythmias PACs and PVCs Symptoms Shortness of breath. Stress Interpretation Appropriate hemodynamic response to Lexiscan. No significant ST-T wave changes with Lexiscan. ECG portion is negative for ischemia by diagnostic criteria. Imaging Results Applied corrections - Motion correction applied High risk findings Summed scores - Summed stress score: 5 - Summed rest score: 7 - Summed difference score: -2 Stress ejection Ejection fraction:66 % EDV :64 ml ESV :22 ml Stroke volume :42 ml LV mass :89 gr Imaging Protocols Rest Stress Isotope:Tc99m Sestamibi IV Isotope: Tc99m Sestamibi IV Isotope dose:9.6 mCi Isotope dose:29.2 mCi Date:12/07/2016 07:41 Date:12/07/2016 10:50 Technique: SPECT Technique: Gated Supine SPECT Supine Procedure Medications - Regadenoson (Lexiscan) 0.4 mg IV over 10-15 sec. I.V. 0.4 mg. Medical History Admission Medications + +------+ + + +--------+ !Name !Dosage!Times per day !Start date !Stop date !Details ! + +------+ + + +--------+ !Beta Lourdes (any) ! ! ! ! ! ! + +------+ + + +--------+ Admission Data Admission date: 11/29/2016 Admission Time: 15:22 Hospital Status: Inpatient. Signatures dtt: JOHN SNOW dtd: 12/07/16 1045 Physician Self Edit
--- NOTE | ~2016-11-29 | OR ---
PATIENT'S NAME: SAMPSON LEGER [facility] AGE: 71 Y [address] ROOM: [place] [address] [place] [facility] [place]: 11/29/2016 OR/Procedure Report DISCHARGE DATE: FAMILY PHYSICIAN: PHYSICIAN, UNKNOWN ATTENDING PHYSICIAN: REN CHAHAL SURGEON: Noah Pires MD INVESTMENT ACCOUNTANT: DATE OF PROCEDURE: 12/01/2016 PREOPERATIVE DIAGNOSIS: Gross hematuria. POSTOPERATIVE DIAGNOSIS: Gross hematuria. PROCEDURES PERFORMED: Cystoscopy, bladder biopsy, and fulguration. ANESTHESIA: MAC. COMPLICATIONS: None. INDICATION FOR PROCEDURE: The patient is a 71-year-old male with gross hematuria. Abdominopelvic CT scan showed bladder wall thickening with blood, but no masses. DETAILS OF PROCEDURE: After informed consent was obtained, the patient was taken to the operating room. A MAC anesthetic was applied. He was placed in dorsal lithotomy position. The groin area was prepped and draped in normal sterile fashion. Cystoscope was introduced into the urethra and bladder without difficulty. The patient was noted to have elevated bladder neck, but no lateral lobe prostatic enlargement. Upon entering the bladder, the patient had significant global inflammation. No specific masses or lesions were noted. I took 2 random biopsies from the inflammatory areas. These were then fulgurated for hemostasis. I then placed a 20-Azeri 3-way Horne catheter to drainage. The patient tolerated the procedure well and was transferred to recovery room in good condition. MD ATUL TATE/jnoo /[id number] d: 12/01/162325 t: 12/11/161917, OPERATIVE SUMMARY
--- NOTE | ~2016-11-29 | DS ---
PATIENT'S NAME: [facility] AGE: 71 Y [address] ROOM: [place] [address] LOCATION: [facility] [place] ADMIT DATE: 11/29/2016 Discharge Summary DISCHARGE DATE: FAMILY PHYSICIAN: Physician, Unknown ATTENDING PHYSICIAN: Eugene Mcclellan DISCHARGE SUMMARY. TENTATIVE DATE OF DISCHARGE: December 08, 2016. PRIMARY DIAGNOSES: 1. Acute blood loss anemia. 2. Hematuria. 3. Lower gastrointestinal bleed. 4. Tachyarrhythmias. 5. Squamous cell lung cancer. 6. Moderate protein-calorie malnutrition. 7. Left lower lung cavitary lesion. 8. Right lung pneumonia. 9. Chronic obstructive pulmonary disease exacerbation. PRINCIPAL PROCEDURES: Done for the patient include: 1. Cystoscopy with bladder biopsy by Dr. Pires. 2. Colonoscopy with biopsy of the polyp by Dr. Terrazas. 3. CT-guided lung biopsy by Dr. Gallagher. LABORATORY DATA: On admission, WBC was 9.4, highest level obtained was 15.0, prior to discharge was 8.7; H and H on admission were 13.0 and 40.1, were stable throughout hospital stay, prior to discharge were 12.3 and 37.7; platelet on admission was 252, was stable throughout hospital stay. Sodium on admission was 139, highest level obtained was 145, prior to discharge was 137; potassium on admission was 3.9, was stable throughout hospital stay at 3.9; bicarb was 31, prior to discharge was 34; creatinine was stable at 0.7 throughout the hospital stay; BUN was also stable at 15 throughout hospital stay. Phosphorus on admission was 2.7, lowest level obtained was 1.4, was repleted, prior to discharge was 3.1. magnesium was 2.3. Total cholesterol 106, triglycerides 72, HDL 58, LDL 34. INR was 1.1. UA: Leukocytes 500, nitrite negative, wbc 20-50, bacteria negative. MICROBIOLOGY DATA: Urine culture, no growth. Stool for ova and parasites was negative. Sputum culture, normal respiratory mark. Left lung aspirate for gram stain negative, no organism observed. No growth at one day. Left lung for AFB smear was negative. Left lung for fungal elements also was not observed. PATIENT'S NAME: [facility] AGE: 71 Y [address] ROOM: [address] [place], [place] [address] LOCATION: [facility] [place] ADMIT DATE: 11/29/2016 Discharge Summary DISCHARGE DATE: FAMILY PHYSICIAN: Physician, Unknown ATTENDING PHYSICIAN: Eugene Mcclellan RADIOLOGY DATA: Chest x-ray on admission reported as questionable 11 mm nodule overlying the anterior right 11th rib. CT correlation recommended to exclude underlying pulmonary nodule. CT abdomen and pelvis without contrast, bladder wall thickening is nonspecific. This could be infectious, inflammatory, or less likely neoplastic. There is blood in the bladder and mild left hydronephrosis without stones. Prominent stool in the colon especially the rectum suggesting constipation, emphysema, moderate aortoiliac atherosclerosis. CT chest is reported as emphysematous changes in the lung parenchyma. Pleural thickening and pleural parenchymal scarring with parenchymal calcification in the upper lobes. Cavitary mass in the superior segment of the left lower lobe. This could be an infectious, inflammatory, or neoplastic origin. Area of lung consolidation in the right lower lobe consistent with infiltrate and atelectasis. CT-guided lung biopsy, chest x-ray following the CT-guided lung biopsy: No pneumothorax. Stable chest and status post left lung biopsy. There is no pneumothorax. Echocardiogram: EF 50%. Diastolic dysfunction indeterminate due to the patient's arrhythmias, poor pericardial and apical windows. Vascular lower arterial plethysmography: Ankle-brachial index on the right is 1.08, ankle-brachial index on the left is 0.89. HOSPITAL COURSE: For history of present illness, please take a look at the H and P, which was done by TIMOTHY Dupont and Dr. Noland. The patient was admitted to medical-surgical unit for acute blood loss anemia, which was thought to be probably secondary to rectal bleed given the patient's symptoms as well as probably gross hematuria. So for the questionable rectal bleed, he got a GI consult. After the patient was reviewed by GI, they recommended colonoscopy, which was done by the next day of his hospital stay. The colonoscopy revealed mostly multiple polyps, which were biopsied, ultimately came back as an adenoma. By the next day after this, he had a cystoscopy done with bladder biopsy, which was done by the urologist, and he had a Horne catheter indwelling still with pink-colored urine up until discharge. Pathology report of the bladder biopsy came back as mucosal ulceration with associated [id number] acute on chronic inflammation and granulation tissue negative for malignancy, and 2 days following his cystoscopy, the patient developed tachyarrhythmias, and for this, he had a 12-lead EKG done, which showed sinus tachycardia and also had a Cardiology consult. Line of thought by Cardiology was possibly this may be supraventricular tachycardia given the patient's history of longstanding COPD. The patient also presented with Chronic hypoxic respiratory failure, for which he was on oxygen baseline of 2 L of oxygen. Given the increase in the volume of his phlegm, he did get PATIENT'S NAME: SAMPSON LEGER [facility] AGE: 71 Y [address] ROOM: [place] [address] LOCATION: [facility] [place] ADMIT DATE: 11/29/2016 Discharge Summary DISCHARGE DATE: FAMILY PHYSICIAN: Physician, Unknown ATTENDING PHYSICIAN: Eugene Mcclellan a chest x-ray done on admission, which revealed a pulmonary nodule, and this was followed up with a CT of the chest without contrast, which revealed a left lung cavitary mass and also with right lower lung consolidation. Following this, he got a Pulmonary consult, and after the patient was reviewed by then, they recommended a CT-guided biopsy of the left lung cavitary mass. Because of the right lower lung consolidation, pulmonary recommended to treat the patient empirically for a right lower lobe pneumonia, and so he was put on Levaquin p.o. for a total of 7 days. He was also managed for COPD exacerbation given his increase in production of his phlegm with prednisone, and 2 days prior to discharge, he was started on a prednisone taper. The patient continued to make improved clinical progress. His rectal bleeding stopped during his hospital stay, and GI felt possibly this may be secondary to hemorrhoidal bleed. However, his hematuria improved but did not completely resolve during his hospital stay, and so the patient had to be discharged with a Horne catheter in place for him to follow up with Urology as an outpatient. On the initial plan date of discharge, which was supposed to be December 07, 2016, the result of his lung biopsy came back as a squamous cell cancer, and for this, we needed to get an Oncology consult, and the remaining part of the discharge summary will be done after Oncology evaluate the patient. MD RALEIGH GUTIERREZ/jono /[id number] d: 12/08/16 0027 t: 12/18/16 1008, DISCHARGE SUMMARY
--- NOTE | ~2016-11-29 | DS ---
PATIENT'S NAME: SAMPSON LEGER [facility] AGE: 71 Y [address] ROOM: [id number] [place], [place] [address] LOCATION: [facility] [place] ADMIT DATE: 11/29/2016 Discharge Summary DISCHARGE DATE: 12/08/2016 FAMILY PHYSICIAN: Physician, Unknown ATTENDING PHYSICIAN: Eugene Mcclellan Completion of discharge summary. ADDITIONAL PRIMARY DIAGNOSIS: Squamous cell lung cancer. HOSPITAL COURSE: Please refer to the initial discharge summary done by Dr. Oh for details. Continuation of the discharge summary includes hospital course. After the patient was reviewed by Dr. Centeno for his squamous cell lung cancer, he recommended a PET scan to be done. However, the schedule for PET scan was pretty full, not available until December 21, 2016. Dr. Centeno also recommended some stereotactic radiation as well, and he did also have a family conference with the patient and to discuss the management plan. The patient also did get a stress test done by Cardiology as a kind of preop prepping should case the patient would need a kind of thoracotomy, and his stress test was negative. Following this, the patient's vital signs were stable, and he was discharged home. DISCHARGE INSTRUCTIONS: 1. The patient is to go home with Home Health as well as home PT. 2. The patient is to follow with Dr. Pires in the next 1 week. He is also to follow with Dr. Martinez, tennis racket repairer, and Dr. Estrada on the same date of visit. The patient is to be discharged home on Horne catheter. MEDICATIONS ON DISCHARGE: 1. Ascorbic acid 500 mg p.o. daily. 2. Prozac 20 mg p.o. daily. 3. Mucinex 600 mg p.o. q.12 hours. 4. Ketoconazole 1 application topical twice daily. 5. Multivitamin 1 tablet p.o. daily. 6. Levaquin 750 mg p.o. daily, stop on December 10, 2016. 7. Prednisone taper 30 mg p.o. daily for 3 days, then 20 mg p.o. daily for 3 days, then 10 mg p.o. daily for 3 days, then 5 mg p.o. daily for 3 days, then stop. 8. Triamcinolone topical twice daily. 9. Flomax 0.4 mg p.o. daily. 10. Advair 250/50 Diskus one puff twice daily. 11. Spiriva 1 vial nebs. 12. DuoNeb 1 vial every 6 hours p.r.n. 13. MiraLAX 17 g p.o. q.48 hours. PATIENT'S NAME: SAMPSON LEGER [facility] AGE: 71 Y [address] ROOM: [place] [address] LOCATION: [facility] [place] ADMIT DATE: 11/29/2016 Discharge Summary DISCHARGE DATE: 12/08/2016 FAMILY PHYSICIAN: Physician, Unknown ATTENDING PHYSICIAN: Eugene Mcclellan 14. Toprol-XL 25 mg p.o. daily. Discharge time spent on this patient in preparation for discharge is more than 35 minutes. MD RALEIGH GUTIERREZ/nicolel /[id number] d: 12/08/160 t: 12/18/16 1010, DISCHARGE SUMMARY
[2016-11-29] MEDS ORDERED: FLOMAX0.4 MG PO (15:58)
[2016-11-29] MEDS ORDERED: ADVAIR 250-501 EACH INH (15:58)
[2016-11-29] MEDS ORDERED: MUCINEX600 MG PO (15:59)
[2016-11-29] MEDS ORDERED: NIZORAL30 GM TOP (15:59)
[2016-11-29] MEDS ORDERED: DUONEB INH (15:59)
[2016-11-29] MEDS ORDERED: THERAGRAN-M1 TAB PO (16:00)
[2016-11-29] MEDS ORDERED: MIRALAX17 GM PO (16:00)
[2016-11-29] MEDS ORDERED: TOPROL XL 5050 MG PO (16:01)
[2016-11-29] MEDS ORDERED: PROZAC20 MG PO (16:01)
[2016-11-29] MEDS ORDERED: SPIRIVA HANDIHA1 KIT INH (16:01)
[2016-11-29] MEDS ORDERED: TRIAMCINOLONE 015 GM TOP (16:02)
[2016-11-29] MEDS ORDERED: ASCORBIC ACID500 MG PO (16:02)
--- NOTE | 2016-11-29 16:24 | NUR ---
Pt is 71 y/o male admit for lower GI bleed for hospitalist. Pt alert and oriented x3. Resides at home with . Allergy to PCN and bee venom. Red and yellow bracelets on. PT has hx COPD,htn,ETOH abuse,depression,recent bloody stools,diarrhea. Pt has been incontinent the past 2 days and has been wearing a brief. He states his symptoms started 2 days ago but was vague as to what exactly happened. Today he started having large amts of bloody stools and abd/ and rectal pain as well as blood in his urine. He denies other illnesses recently or changes in meds. Pt came via ambulance from [facility] ED. at bedside.
[2016-11-29 17:47] LABS: BASOPHIL # 0.1 K/uL (0.0-0.2); BASOPHIL % 0.6 %; EOSINOPHIL # 0.1 K/uL (0.0-0.5); EOSINOPHIL % 1.5 %; HEMATOCRIT 40.1 % (37.0-53.0); IMMATURE GRANULOCYTE # 0.1 K/uL (0.0-0.3); IMMATURE GRANULOCYTE % 0.8 %; LYMPHOCYTE # 0.7 K/uL (0.8-4.0); LYMPHOCYTE % 7.8 %; MCH 32.8 pg (27.0-34.0); MCHC 32.4 gm/dL (32.0-36.5); MCV 101.3 fl (83.0-98.0); MPV 9.2 fl (9.4-12.4); NEUTROPHIL # (ANC) 7.4 K/uL (1.4-9.0); NEUTROPHIL % 78.3 %; NRBC % 0 /100WBC (0-0.00); PLATELET COUNT 252 K/uL (150-450); RBC 3.96 M/uL (3.50-5.50); RDW-CV 12.8 % (11.9-14.6); WBC 9.4 K/uL (4.0-11.0)
[2016-11-29 17:57] LABS: INR - (THERAPEUTIC) 1.1 (0.9-1.1); PROTIME 11.3 SECONDS (9.6-11.1)
[2016-11-29 18:06] LABS: ALBUMIN 3.2 gm/dL (3.5-5.0); ALK PHOS 76 IU/L (33-138); ALT 23 IU/L (12-78); ANION GAP 11.9 (10.0-19.0); AST 18 IU/L (10-40); BLOOD UREA NITROGEN 15 mg/dL (6-24); CALCIUM 8.8 mg/dL (8.5-10.5); CHLORIDE 100 mMol/L (96-110); CO2 31 mMol/L (22-32); CREATININE 0.7 mg/dL (0.6-1.3); ESTIMATED GFR (MDRD EQUATION) > 60; MAGNESIUM 2.2 mg/dL (1.3-2.6); POTASSIUM 3.9 mMol/L (3.7-5.1); SODIUM 139 mMol/L (135-145); TOTAL BILIRUBIN 0.5 mg/dL (0.0-1.5); TOTAL PROTEIN 6.6 g/dL (6.0-8.4)
[2016-11-29 18:28] LABS: BILIRUBIN URINE NEGATIVE (NEGATIVE); BLOOD URINE 250 /UL (NEGATIVE); COLOR URINE RED (YELLOW); GLUCOSE URINE NEGATIVE (NEGATIVE); KETONE URINE 5 mg/dL (NEGATIVE); LEUKOCYTES URINE 500 /UL (NEGATIVE); NITRITE URINE NEGATIVE (NEGATIVE); PH URINE 6.5 (4.0-8.0); PROTEIN URINE 100 mg/dL (NEGATIVE); TURBIDITY URINE 4+ (CLEAR); UROBILINOGEN URINE 1 mg/dL (NORMAL)
[2016-11-29 18:32] LABS: EPITHELIAL URINE 0-2 #/HPF (NEGATIVE); RBC URINE PACKED FIELD #/HPF (NEGATIVE); WBC URINE 20-50 #/HPF (NEGATIVE)
[2016-11-29 18:33] LABS: BACTERIA URINE NEGATIVE (NEGATIVE)
--- NOTE | 2016-11-29 19:09 | NUR ---
Significant Event: pt a/o. vs q 4hr. saline lock to r fa, l hand. going to CT scan. Dr Terrazas in to consult, performed rectal exam. NPO at 0400 for scope in am. orders for UA and culture, called for straight cath order, but MD order to place espinosa. Espinosa placed- large amount of blood in urine. Called MD and consult for Urology recieved. Dr Pires will be in in the am. Follow up:clear liquids until 0400, alarms for safety
[2016-11-29 23:01] LABS: HEMATOCRIT 41.9 % (37.0-53.0); HEMOGLOBIN 13.7 g/dL (11.0-16.0)
--- NOTE | 2016-11-30 03:24 | NUR ---
SIGNIFICANT EVENT: Patient alert &oriented. CACHIL DEHE. SuPrep given as ordered at 2100 and again at 0300. PIV's to R) FA - infusing NS at 75 mL/hr and L) hand - SL. VSS on 2L - take VS q4 until 1999 tonight, dyspnea on any activity - even moving around in bed, but sats stay mid to upper 90's. Does get RT tx's. NPO at 0400 for colonoscopy today. Has not had any blood in stool this shift - all brown. Stool specimen obtained - first stool was formed so CDiff is ruled out. 1PA with front wheeled walker, gait belt to bedside commode during bowel prep. Q6h H&H. Pleasant and cooperative with cares.
[2016-11-30 05:23] LABS: HEMATOCRIT 40.9 % (37.0-53.0); HEMOGLOBIN 13.5 g/dL (11.0-16.0)
[2016-11-30 13:38] LABS: HEMATOCRIT 36.8 % (37.0-53.0)
--- NOTE | 2016-11-30 15:23 | NUR ---
Introduced self and care management services to patient. Lives in [place] with . Denies concerns about going home on discharge, denies needs. Will follow and assist with dc planning as needs identified.
--- NOTE | 2016-11-30 16:00 | NUR ---
Significant Event:Is A/O.Is LA POSTA.IV in Lt.hand.Has been up with walker & 1 assist.Had colonoscopy & had only 2 polyps & one was tagged.Is to have have cysto tomorrow.Reg diet & NPO at midnoc.No c/o pain.SOB on activity.Has tele on.Has O2 on at 2L/NC.Lungs sl coarse.Sounds kind of rattley & has occ.loose NPC.Espinosa was not draining when first got here & had leaked alot from around catheter that was reddish in color.What little drng that was in catheter bag was very bloody.Irrigated with a flush & got it draining a lg amt of bloody urine with clots.Right now espinosa is drning lt brownish urine.Had loose stools in the noc do to bowel prep.,none for me.IV in Rt.arm & SL in LT.hand. Follow up:
[2016-11-30 17:01] LABS: HEMATOCRIT 36.9 % (37.0-53.0)
[2016-11-30 23:13] LABS: HEMATOCRIT 35.6 % (37.0-53.0); HEMOGLOBIN 11.6 g/dL (11.0-16.0)
[2016-12-01 05:36] LABS: ALBUMIN 2.7 gm/dL (3.5-5.0); BLOOD UREA NITROGEN 13 mg/dL (6-24); CALCIUM 7.7 mg/dL (8.5-10.5); CHLORIDE 108 mMol/L (96-110); CO2 29 mMol/L (22-32); CREATININE 0.6 mg/dL (0.6-1.3); ESTIMATED GFR (MDRD EQUATION) > 60; PHOSPHORUS 2.7 mg/dL (2.5-4.9)
[2016-12-01 05:45] LABS: MAGNESIUM 2.3 mg/dL (1.3-2.6); SODIUM 145 mMol/L (135-145)
[2016-12-01 05:47] LABS: BASOPHIL % 0.4 %; EOSINOPHIL # 0.1 K/uL (0.0-0.5); EOSINOPHIL % 0.9 %; HEMATOCRIT 35.8 % (37.0-53.0); HEMOGLOBIN 11.3 g/dL (11.0-16.0); IMMATURE GRANULOCYTE # 0.1 K/uL (0.0-0.3); IMMATURE GRANULOCYTE % 0.5 %; LYMPHOCYTE # 0.6 K/uL (0.8-4.0); MCH 32.8 pg (27.0-34.0); MCHC 31.6 gm/dL (32.0-36.5); MCV 104.1 fl (83.0-98.0); MONOCYTE # 1.1 K/uL (0.0-1.0); MONOCYTE % 10.3 %; MPV 9.7 fl (9.4-12.4); NEUTROPHIL % 82.9 %; NRBC % 0 /100WBC (0-0.00); PLATELET COUNT 228 K/uL (150-450); RBC 3.44 M/uL (3.50-5.50); RDW-CV 13.2 % (11.9-14.6); WBC 10.9 K/uL (4.0-11.0)
--- NOTE | 2016-12-01 05:50 | NUR ---
SIGNIFICANT EVENT: Patient was very sleepy at beginning of shift, opened eyes to voice but verbal response was delayed - disoriented to date/time/location. More alert at second assessment. PRN irrigation to espinosa d/t clotting, bloody urine - irrigated x2 with 34 to 38 mL. 1390 out this shift. Cystoscopy scheduled for later today - approx 3 pm. R) wrist IV infusing NS at 75 mL/hr. 1PA to BR. VSS on 2L. Cooperative with cares.
[2016-12-01 11:31] LABS: HEMATOCRIT 33.8 % (37.0-53.0); HEMOGLOBIN 10.9 g/dL (11.0-16.0)
--- NOTE | 2016-12-01 12:15 | NUR ---
I have examined the student charting and find it acceptable. Angelito
--- NOTE | 2016-12-01 19:07 | NUR ---
Patient is alert and oriented, VSS, on 3L O2. Went down for a cysto with biopsy of bladder. 3 way cath was placed in surgery with bloody urine draining. Clear liquid diet resumed. IV in R) forearm infusing NS at 75ml/hr. L) forearm IV is saline locked. Had a colonoscopy yesterday. History of emphysema. Tele with no calls today.
[2016-12-01 23:01] LABS: HEMATOCRIT 36.1 % (37.0-53.0); HEMOGLOBIN 11.3 g/dL (11.0-16.0)
--- NOTE | 2016-12-02 04:01 | NUR ---
Significant Event: Patient alert and oriented X4. Resting in bed. Horne draining pink/light pink urine. Some clots noted in bottom of bag. On 3 liters oxygen. Had colonoscopy on , laverneyp removed. Cysto yesterday. On tele, no calls. Vitals stable. Received IV K+ yesterday. NS at 75ml to R) forearm. Clear liquid diet. Routine breathing treatments. Lung sounds coarse. Follow up: Monitor
[2016-12-02 05:45] LABS: HEMOGLOBIN 10.5 g/dL (11.0-16.0); MCH 33.2 pg (27.0-34.0); MCHC 31.8 gm/dL (32.0-36.5); MCV 104.4 fl (83.0-98.0); MPV 9.3 fl (9.4-12.4); PLATELET COUNT 229 K/uL (150-450); RBC 3.16 M/uL (3.50-5.50); RDW-CV 12.9 % (11.9-14.6); WBC 7.9 K/uL (4.0-11.0)
[2016-12-02 06:01] LABS: ALBUMIN 2.7 gm/dL (3.5-5.0); ANION GAP 10.9 (10.0-19.0); BLOOD UREA NITROGEN 10 mg/dL (6-24); CALCIUM 7.9 mg/dL (8.5-10.5); CHLORIDE 109 mMol/L (96-110); CO2 29 mMol/L (22-32); CREATININE 0.6 mg/dL (0.6-1.3); ESTIMATED GFR (MDRD EQUATION) > 60; MAGNESIUM 2.2 mg/dL (1.3-2.6); PHOSPHORUS 2.1 mg/dL (2.5-4.9); POTASSIUM 3.9 mMol/L (3.7-5.1); SODIUM 145 mMol/L (135-145)
[2016-12-02 06:30] LABS: LYMPHOCYTE # 0.6 K/uL (0.8-4.0); LYMPHOCYTE % 5 %; MONOCYTE # 0.4 K/uL (0.0-1.0); SEGMENTED NEUTROPHIL % 88 %
[2016-12-02 08:37] LABS: HEMATOCRIT 35.7 % (37.0-53.0); HEMOGLOBIN 11.2 g/dL (11.0-16.0)
[2016-12-02 14:18] LABS: HEMATOCRIT 36.7 % (37.0-53.0); HEMOGLOBIN 11.9 g/dL (11.0-16.0)
--- NOTE | 2016-12-02 15:34 | NUR ---
Pt alert and oriented x3. Hard of hearing. 3 way espinosa draining light pink to pollock urine at times. O2 continuous at 2 L. Pt is DNR/DNI. Family to visit. Resting in bed. Denies pain,able to make needs known. No bloody stools.
[2016-12-02 20:12] LABS: HEMATOCRIT 39.2 % (37.0-53.0); HEMOGLOBIN 12.5 g/dL (11.0-16.0)
[2016-12-03 01:52] LABS: HEMATOCRIT 36.5 % (37.0-53.0); HEMOGLOBIN 11.7 g/dL (11.0-16.0)
[2016-12-03 05:52] LABS: BASOPHIL # 0.1 K/uL (0.0-0.2); BASOPHIL % 0.3 %; EOSINOPHIL # 0.1 K/uL (0.0-0.5); EOSINOPHIL % 0.6 %; HEMATOCRIT 35.9 % (37.0-53.0); HEMOGLOBIN 11.5 g/dL (11.0-16.0); IMMATURE GRANULOCYTE # 0.1 K/uL (0.0-0.3); IMMATURE GRANULOCYTE % 0.5 %; LYMPHOCYTE # 0.8 K/uL (0.8-4.0); LYMPHOCYTE % 5.1 %; MCH 32.8 pg (27.0-34.0); MCV 102.3 fl (83.0-98.0); MONOCYTE # 1.1 K/uL (0.0-1.0); MONOCYTE % 7.4 %; MPV 9.6 fl (9.4-12.4); NEUTROPHIL # (ANC) 12.9 K/uL (1.4-9.0); NEUTROPHIL % 86.1 %; NRBC % 0 /100WBC (0-0.00); PLATELET COUNT 245 K/uL (150-450); RBC 3.51 M/uL (3.50-5.50); RDW-CV 12.8 % (11.9-14.6)
[2016-12-03 06:11] LABS: ALBUMIN 2.7 gm/dL (3.5-5.0); ANION GAP 11.3 (10.0-19.0); BLOOD UREA NITROGEN 7 mg/dL (6-24); CALCIUM 7.7 mg/dL (8.5-10.5); CHLORIDE 102 mMol/L (96-110); CO2 30 mMol/L (22-32); CREATININE 0.7 mg/dL (0.6-1.3); ESTIMATED GFR (MDRD EQUATION) > 60; MAGNESIUM 1.9 mg/dL (1.3-2.6); POTASSIUM 3.3 mMol/L (3.7-5.1); SODIUM 140 mMol/L (135-145)
[2016-12-03 06:14] LABS: PHOSPHORUS 1.4 mg/dL (2.5-4.9)
--- NOTE | 2016-12-03 06:42 | NUR ---
Significant Event: Uneventful night, patient remains on 02 at 2 liters. Ate poorly for supper, denies pain, tele on with no calls. Cooperative with cares. Follow up: Continue to monitor.
[2016-12-03 08:19] LABS: HEMATOCRIT 36.5 % (37.0-53.0); HEMOGLOBIN 11.8 g/dL (11.0-16.0)
--- NOTE | 2016-12-03 10:27 | NUR ---
A - PT SCREENED D/T LOS. LOWER GI BLEED. 11/29 WT 117#, 12/03 WT 113# - DOWN 4# (3.4%). BMI: 17.2. LABS: K+ 3.3, ALB 2.7, PHOS 1.4, WBC 15.0. MEDS: PROTONIX, IVF, NAUSEA. DIET: REG. INTAKE: REF-100%. EST NEEDS: 3474-2860 KCAL (30-35 KCAL/KG), 51-66 G PRO (1-1.3 G/KG), 1530 ML FLUID (30 ML/KG). D - INADEQUATE NUTRIENT INTAKE R/T DECREASED APPETITE, ALTERED GI FUNCTION AEB 3.4% WT LOSS SINCE ADMIT, INTAKE RECORD, LOWER GI BLEED. I - GOAL FOR INTAKE > 50% BY NEXT ASSESSMENT. WILL ADD ENSURE TID TO INC NUTRIENT INTAKE. M/E - WILL MONITOR INTAKE, WT, AND GI FUNCTION. F/U IN 2-4 DAYS.
[2016-12-03 14:01] LABS: HEMATOCRIT 39.5 % (37.0-53.0); HEMOGLOBIN 12.5 g/dL (11.0-16.0)
--- NOTE | 2016-12-03 17:34 | NUR ---
AAOx3, but forgetful. Up w/assist, GB, and walker. Showered today, hair trim too as there were several mattings in back. Horne draining pink urine w/some sediment and clots. Tolerating regular diet well. IVF infusing w/out complications. Tele on with calls for tachycardia/possible Afib. EKG and echo done. Cardiology consulted. CT of chest ordered. Very SOB. Tachy to 200s w/PT when standing. Slow to recover O2 sats. Up to 5liters, then titrated back down. Now on 3liters.
[2016-12-03 20:17] LABS: HEMATOCRIT 36.2 % (37.0-53.0); HEMOGLOBIN 11.4 g/dL (11.0-16.0)
--- NOTE | 2016-12-04 02:39 | NUR ---
Significant Event:Patient went down for a CT scan of his chest. This showed right lower lobe pneumonia, a 6mm nodule, hydronephrosis, and advanced emphysema. Has a harsh cough and desats quickly when lying flat or when taking in medications or food. Alert and orientated x 3. [address] espinosa to DD with some sediment, but no blood. He has not had any bloody stools. Denies pain. Follow up: Continue to monitor.
[2016-12-04 05:43] LABS: HEMATOCRIT 35.8 % (37.0-53.0); HEMOGLOBIN 11.3 g/dL (11.0-16.0); MCH 32.4 pg (27.0-34.0); MCHC 31.6 gm/dL (32.0-36.5); MCV 102.6 fl (83.0-98.0); MPV 9.6 fl (9.4-12.4); PLATELET COUNT 246 K/uL (150-450); RBC 3.49 M/uL (3.50-5.50); RDW-CV 12.7 % (11.9-14.6); WBC 9.7 K/uL (4.0-11.0)
[2016-12-04 06:07] LABS: ALBUMIN 2.6 gm/dL (3.5-5.0); ANION GAP 11.5 (10.0-19.0); BLOOD UREA NITROGEN 10 mg/dL (6-24); CALCIUM 7.8 mg/dL (8.5-10.5); CHLORIDE 100 mMol/L (96-110); CO2 32 mMol/L (22-32); CREATININE 0.6 mg/dL (0.6-1.3); ESTIMATED GFR (MDRD EQUATION) > 60; PHOSPHORUS 2.4 mg/dL (2.5-4.9); POTASSIUM 3.5 mMol/L (3.7-5.1); SODIUM 140 mMol/L (135-145)
[2016-12-04 06:22] LABS: ABSOLUTE NEUTROPHIL CT (ANC) 9.1 K/uL (1.4-9.0); BANDED NEUTROPHIL # 0.4 K/uL (0.0-0.1); BANDED NEUTROPHILS % 4 %; LYMPHOCYTE # 0.3 K/uL (0.8-4.0); LYMPHOCYTE % 3 %; MONOCYTE # 0.3 K/uL (0.0-1.0); SEGMENTED NEUTROPHIL # 8.7 K/uL (1.4-9.0); SEGMENTED NEUTROPHIL % 90 %
[2016-12-04 11:12] LABS: CPK 401 IU/L (35-332)
--- NOTE | 2016-12-04 12:24 | NUR ---
Student nurse provided patient cares from 0600 to 1215. Jakob Payton RN, [facility] Instructor
--- NOTE | 2016-12-04 17:31 | NUR ---
Significant Event: Patient alert and oriented. Up to the chair and ambulated in the hallway with PT. Patient short of breath with minimal activity or exertion. Denies discomfort. O2 at 2 l/nc with sats in the low to mid 90's. Patient had a productive cough this morning of thick, yellow phelgm but nothing this afternoon. New order for a sputum specimen. IV fluids dc'd. Saline lock to his R) forearm. Horne patent and drains clear yellow urine with 500 ml out for the shift. Patient will have a lung biopsy Sun. Started on oral Levaquin 750 mg daily. Follow up: Monitor respiratory status.
--- NOTE | 2016-12-04 23:13 | NUR ---
Remains on 2L of Oxygen per nasal cannula. Unable to give a sputum culture yet. Saline lock to right forearm flushes well. Horne catheter patent with yellow urine present.
--- NOTE | 2016-12-05 04:35 | NUR ---
Alert and oriented. SOB with activity. 2 ltrs O2. Need sputum sample. Ozzie patent- [id number] out this shift. Patient to have lung biopsy Sunday. Denies pain. IV RFA SL. Telemetry.
[2016-12-05 05:43] LABS: BASOPHIL % 0.1 %; EOSINOPHIL % 0.4 %; HEMATOCRIT 34.1 % (37.0-53.0); HEMOGLOBIN 11.4 g/dL (11.0-16.0); IMMATURE GRANULOCYTE % 0.5 %; LYMPHOCYTE # 0.6 K/uL (0.8-4.0); LYMPHOCYTE % 6.6 %; MCH 33.4 pg (27.0-34.0); MCHC 33.4 gm/dL (32.0-36.5); MONOCYTE # 0.9 K/uL (0.0-1.0); MONOCYTE % 11.1 %; MPV 9.4 fl (9.4-12.4); NEUTROPHIL # (ANC) 6.8 K/uL (1.4-9.0); NEUTROPHIL % 81.3 %; NRBC % 0 /100WBC (0-0.00); PLATELET COUNT 274 K/uL (150-450); RBC 3.41 M/uL (3.50-5.50); RDW-CV 12.6 % (11.9-14.6); WBC 8.4 K/uL (4.0-11.0)
[2016-12-05 05:54] LABS: ALBUMIN 2.4 gm/dL (3.5-5.0); BLOOD UREA NITROGEN 11 mg/dL (6-24); CHLORIDE 98 mMol/L (96-110); CO2 39 mMol/L (22-32); CREATININE 0.6 mg/dL (0.6-1.3); ESTIMATED GFR (MDRD EQUATION) > 60; PHOSPHORUS 0.9 mg/dL (2.5-4.9); SODIUM 140 mMol/L (135-145)
[2016-12-05 12:28] LABS: BICARBONATE 41.8 mmol/L (18.0-23.0); PCO2 50 mmHg (35-45); PO2 60 mmHg (80-90)
--- NOTE | 2016-12-05 12:51 | NUR ---
A - NUTRITION F/U. K+ 3.0, GLU 146, BUN/REAL ESTATE LEGAL ASSISTANT 11/0.6, ALB 2.4. DIET: REGULAR W/ INTAKE 0-50%. ENSURE OFFERED TID. PT STATES HE IS HUNGRY TODAY, IS TAKING HIS ENSURE, LIKES CHOCOLATE. D - AT RISK W/ INADEQUATE MEAL INTAKE R/T DECREASED APPETITE AEB INTAKE RECORD. I - GOAL: 50% OR BETTER INTAKE BY NEXT REVIEW. M/E - WILL CHANGE ENSURES TO CHOCOLATE AND F/U IN 2-4 DAYS.
--- NOTE | 2016-12-05 16:27 | NUR ---
Significant Event:is A/O.Accidently pulled out his SL that was in Rt.forearm,but has a new one that is in Rt.forearm.Ozzie floyd clear yellow urine.Gets really SOB on activity.Occ.loose cough.Sputum sent to lab.Is amb with walker & 1 assist.NPO after midnoc for lung bx.Has O2 on at 3L/NC.Is really weak.Has tele on.No BM since nov.30. Follow up:
--- NOTE | 2016-12-06 05:04 | NUR ---
Significant Event: Patient is A&O x 3. Has IV to R) posterior forearm SL. Horne draining clear yellow urine. Patient has occasional loose cough. NPO for lung biopsy today. Has 2L O2 via NC. Up with 1 assist, walker/gait belt. Patient is SOB with activity. Tele on with no calls. No BM since 11/30. Patient has rested well throughout the night. Follow up: Lung Biopsy today.
[2016-12-06 05:45] LABS: EOSINOPHIL % 0.5 %; HEMATOCRIT 38.7 % (37.0-53.0); HEMOGLOBIN 12.6 g/dL (11.0-16.0); IMMATURE GRANULOCYTE % 0.4 %; LYMPHOCYTE # 0.6 K/uL (0.8-4.0); LYMPHOCYTE % 6.8 %; MCH 32.6 pg (27.0-34.0); MCHC 32.6 gm/dL (32.0-36.5); MONOCYTE # 0.8 K/uL (0.0-1.0); MONOCYTE % 9.3 %; MPV 9.7 fl (9.4-12.4); NEUTROPHIL # (ANC) 6.8 K/uL (1.4-9.0); NRBC % 0 /100WBC (0-0.00); PLATELET COUNT 298 K/uL (150-450); RBC 3.87 M/uL (3.50-5.50); RDW-CV 12.9 % (11.9-14.6); WBC 8.1 K/uL (4.0-11.0)
[2016-12-06 05:51] LABS: INR - (THERAPEUTIC) 1.1 (0.9-1.1); PROTIME 11.3 SECONDS (9.6-11.1)
[2016-12-06 06:19] LABS: ALBUMIN 2.8 gm/dL (3.5-5.0); ANION GAP 10.9 (10.0-19.0); BLOOD UREA NITROGEN 10 mg/dL (6-24); CALCIUM 8.9 mg/dL (8.5-10.5); CHLORIDE 97 mMol/L (96-110); MAGNESIUM 2.2 mg/dL (1.3-2.6); POTASSIUM 3.9 mMol/L (3.7-5.1); SODIUM 139 mMol/L (135-145)
[2016-12-06 06:20] LABS: CREATININE 0.6 mg/dL (0.6-1.3); ESTIMATED GFR (MDRD EQUATION) > 60; PHOSPHORUS 2.8 mg/dL (2.5-4.9)
[2016-12-06 06:21] LABS: CO2 35 mMol/L (22-32)
--- NOTE | 2016-12-06 17:03 | NUR ---
Significant Event: PT A/O. VSS ON 2L O2 PER HOME ROUTINE. WAS NPO FOR LUNG BIOPSY TODAY. SITE TO L BACK. CXR DONE AT 1530 POST BIOPSY. NO PNEUMO NOTED. PT RESTARTED ON REGULAR DIET. BLACKWOOD PATENT, SOME SMALL CLOTS NOTED IN TUBE. WILL BE NPO AT MIDNIGHT FOR LEXISCAN IN THE AM. PT/OT WORKING WITH. UP WITH 1PA. Follow up: NPO AT MIDNIGHT, BED ALARMS
--- NOTE | 2016-12-07 05:10 | NUR ---
Significant Event: Patient A&O x 3. VSS on 2L O2. Is NPO for Lexiscan today. Had lung biopsy yesterday, incision to left upper chest. Patient has a espinosa. Had a cysto during stay. Some small clots noted. IV to R) posterior forearm SL. Up with 1A, walker, gait belt. Tele on with no calls. Follow up: NPO for Lexiscan.
[2016-12-07 05:38] LABS: BASOPHIL % 0.1 %; EOSINOPHIL # 0.1 K/uL (0.0-0.5); EOSINOPHIL % 0.9 %; HEMATOCRIT 37.7 % (37.0-53.0); HEMOGLOBIN 12.3 g/dL (11.0-16.0); IMMATURE GRANULOCYTE # 0.1 K/uL (0.0-0.3); IMMATURE GRANULOCYTE % 0.7 %; LYMPHOCYTE # 0.8 K/uL (0.8-4.0); LYMPHOCYTE % 9.5 %; MCH 32.7 pg (27.0-34.0); MCHC 32.6 gm/dL (32.0-36.5); MCV 100.3 fl (83.0-98.0); MONOCYTE # 0.8 K/uL (0.0-1.0); MONOCYTE % 9.6 %; MPV 9.5 fl (9.4-12.4); NEUTROPHIL # (ANC) 6.9 K/uL (1.4-9.0); NEUTROPHIL % 79.2 %; NRBC % 0 /100WBC (0-0.00); PLATELET COUNT 327 K/uL (150-450); RBC 3.76 M/uL (3.50-5.50); RDW-CV 12.9 % (11.9-14.6); WBC 8.7 K/uL (4.0-11.0)
[2016-12-07 05:47] LABS: ALBUMIN 2.8 gm/dL (3.5-5.0); ANION GAP 11.9 (10.0-19.0); BLOOD UREA NITROGEN 15 mg/dL (6-24); CALCIUM 8.6 mg/dL (8.5-10.5); CHLORIDE 95 mMol/L (96-110); CO2 34 mMol/L (22-32); CREATININE 0.7 mg/dL (0.6-1.3); ESTIMATED GFR (MDRD EQUATION) > 60; MAGNESIUM 2.2 mg/dL (1.3-2.6); PHOSPHORUS 3.1 mg/dL (2.5-4.9); POTASSIUM 3.9 mMol/L (3.7-5.1); SODIUM 137 mMol/L (135-145)
--- NOTE | 2016-12-07 11:00 | NUR ---
SPOKE TO PATIENT AND HIS SPOUSE AT THE BEDSIDE.UPDATED PATIENT THAT HE WILL BE GOING HOME TODAY AND HE IS HAPPY ABOUT THIS. HIS SPOUSE DID NOT BRING SAMPSON'S 02 AND SHE IS NOT WILLING TO"DRIVE [address] TO GET [address]." I NOTIFIED YOSELYN FROM AND SHE MEET WITH PATIENT AND HIS SPOUSE AND EXPLAINED TO THEM THAT IF THEY HAVE SOMEONE FROM [place] DELIVER THS 02 THAT THEY WILL NEED TO PAY 100.00 AND HIS SPOUSE SAYS SHE CAN NOT DO THAT. SHE DOES NOT KNOW THE NAME OF THE PLACE IN [place] THAT THEY GET SAMPSON'S O2. I NOTIFIED SAMPSON'S PCP AND THEY TELL ME THAT SAMPSON GETS HIS O2 FROM [facility] IN [place]. I NOTIFIED THEM ([phone]) THE CONFIRM THAT SAMPSON GETS HIS O2 FROM THEM AND THEY WILL DELIVER 02 TO HIM HERE LATER THIS AFTERNOON. I UPDATED SAMPSON AND HIS SPOUSE AND THEY ARE OK WITH THIS. ALSO RECEIVED ORDER FOR [facility]. SPOKE TO SAMPSON AND HIS SPOUSE REGARDING HHC REFERRAL AND THEY ARE IN AGREEMENT TO THIS. I MADE REFERRAL TO [facility] AND SPOKE TO PAULA, SHE TELLS ME THAT THE NURSE I NEED TO SPEAK TO IS IN A MEETING SHE WILL HAVE THE NURSE CONTACT ME ONCE SHE IS OUT OF HER MEETING.
--- NOTE | 2016-12-07 14:00 | NUR ---
RECEIVED CALL FROM [facility]. SHE REPORT THAT THEY WILL PLAN IN SEEING PATIENT TOMORROW OR SAT. I FAXED DISCHARGE ORDERS AND MEDICAL INFO TO HER AT [phone].
--- NOTE | 2016-12-07 14:07 | NUR ---
I have examined the student charting and find it acceptable. KALI Madrid
[2016-12-07] MEDS ORDERED: LEVAQUIN750 MG PO (14:26)
[2016-12-07] MEDS ORDERED: DELTASONE10 MG PO ×2 (14:27→14:30)
[2016-12-07] MEDS ORDERED: DELTASONE20 M1 PO (14:29)
--- NOTE | 2016-12-07 14:30 | NUR ---
Dismissal instructions were prepared for today but discharge is being held until tomorrow. All follow up appointments have been made for all in one day to help the patient will travel time to [place].
[2016-12-07] MEDS ORDERED: DELTASONE5 MG PO (14:31)
--- NOTE | 2016-12-07 15:00 | NUR ---
RECEIVED REFERRAL THAT PATIENT IS NOT BEING DISCHARGED TODAY THE BX HE HAD OF THE LUNG SHOWS CA, HE IS TO BEE SEEN BY DR. WOLF BEFORE BEING DISCHARGED. THE DISCHARGE IS ON HOLD UNTIL POSSIBLE TOMORROW. I NOTIFIED DOMINIQUE AT THE [facility] AND UPDATED HER. SPOKE TO SAMPSON AND HIS SPOUSE AT THE BEDSIDE AND THEY ARE AWARE THAT SAMPSON WILL NOT BE GOING HOME TODAY AND THAT HE WILL BE MEETING WITH DR. WOLF.
--- NOTE | 2016-12-07 17:02 | NUR ---
Significant Event:Is A/O.Is weak.Gets really SOB on activity.Ozzie floyd yellow urine.Had invol.mod.stool this afternoon & said his "belly felt better".Has O2 on at 2L/NC.Had stress test done this morning.Up with walker & 1 assist.Lung bx came back as cancer.Is to see & he plans to go home sometime tomorrow. Follow up:
--- NOTE | 2016-12-08 05:01 | NUR ---
Significant Event: Alert and oriented. Pt refused HS stool softener and reported moderate BM earlier this shift. Horne to DD with leg bag and pt needs leg bag teaching before discharge home. to examine pt this morning per his note. Follow up: Poss discharge today.
--- NOTE | 2016-12-08 15:00 | NUR ---
PATIENT IS BEING DISCHARGE HOME TODAY I NOTIFIED THE [facility] AND SPOKE TO RADHA THEY WILL PLAN ON SEEING PATIENT THIS WEEKEND. WILL FAX FINAL ORDERS TO RADHA. DR. WOLF MADE REFERRAL TO DR.PORNCHAI CASTANON AND SCHEDULED PATIENT TO SEE HIM ON DECEMBER 13 AT 0930.I SPOKE TO 'S NURSE ABELINO AND SHE WOULD LIKE TO HAVE ME FAX INFO TO HER. ([phone]).
--- NOTE | 2016-12-08 17:10 | NUR ---
DISMISSED TO CAR ACCOMPANIED BY FAMILY & SUPERVISOR [employer] AFTER DISCHARGE TEACHING WAS DONE BY .ALSO HAD PORTABLE O2 HE WAS CONNECTED TO ,TO GO HOME WITH & WAS ON AT 2L/NC.
--- NOTE | 2016-12-08 17:55 | NUR ---
DISCHARGE: Pt. was explained discharge instructions. Educated on new medications, prednisone and levaquin. Educated on COPD d/c instructions, GI bleed, catheter cares, cleaning, and leg bag teaching. Patient, , and daughter verbalized understanding, no questions or concerns. Left with all belongings and prescriptions. Left on that was delivered yesterday. Taken to front door by aide and nurse and driven home by family.
== END 2016-12-08 17:12 | disposition home health service (06) | DRG 987 ==
LOC: GMSU 15:22
PROVIDERS: Internal Medicine; Internal Medicine Cardiovascular Disease; Nurse Practitioner; Nurse Practitioner Family; Physician Assistant; Radiology Diagnostic Radiology; ADMIT Internal Medicine
DX: K92.2 Gastrointestinal hemorrhage, unspecified (principal); J18.1 Lobar pneumonia, unspecified organism; E87.3 Alkalosis; J96.11 Chronic respiratory failure with hypoxia; R64 Cachexia; C34.90 Malignant neoplasm of unspecified part of unspecified bronchus or lung; I27.2 Other secondary pulmonary hypertension; D62 Acute posthemorrhagic anemia; J44.1 Chronic obstructive pulmonary disease with (acute) exacerbation; N39.0 Urinary tract infection, site not specified; Z68.1 Body mass index [BMI] 19.9 or less, adult; E44.1 Mild protein-calorie malnutrition; I47.1 Supraventricular tachycardia; D72.829 Elevated white blood cell count, unspecified; E83.39 Other disorders of phosphorus metabolism; E87.6 Hypokalemia; I10 Essential (primary) hypertension; R31.9 Hematuria, unspecified; Z66 Do not resuscitate
CPT/HCPCS: A9500; J1956; J2785; J3010; J3480; J7030; J7050; J7512; Q9967